=== PATIENT | female | born 1980 | race African-American/Black ===

== ENCOUNTER 2025-03-11 00:33 | Emergency (ER) | payer MEDICAID ==
[~2025-03-11] VITALS: Ht 167.6 cm; Wt 65.0 kg
[2025-03-11 00:39] VITALS: O2SAT 99
[2025-03-11 02:52] VITALS: TEMP 36.6; O2SAT 99
[2025-03-11 03:01] VITALS: BP 153/98; PULSE 85; RESP 20
[2025-03-11] MEDS: IBUPROFEN 600MG TABLET PO ONE (03:01)
[2025-03-11] MEDS ORDERED: CYCL10TA21 MT (08:34)
== END 2025-03-11 05:28 | disposition left against medical advice (07) ==
LOC: ER 00:33
DX: S40.011A Contusion of right shoulder, initial encounter (principal); X58.XXXA Exposure to other specified factors, initial encounter; Y93.89 Activity, other specified; Y92.89 Other specified places as the place of occurrence of the external cause; Y99.8 Other external cause status
CPT/HCPCS: 73030; 99283

== ENCOUNTER 2025-03-15 17:24 | Emergency (ER) | payer MEDICAID ==
[~2025-03-15] VITALS: Ht 170.2 cm; Wt 68.0 kg
[~2025-03-15 17:24] MED LIST: CYCL10TA21 MT
[2025-03-15 17:27] VITALS: O2SAT 99
[2025-03-15] MEDS ORDERED: DICYCLOMINE 10 MG/5 ML ORAL SYR PO STA (17:52)
[2025-03-15 18:00] VITALS: BP 147/93; PULSE 70; RESP 16; TEMP 36.8; O2SAT 98
[2025-03-15 18:15] LABS: BASOPHILS % 0.4 % (0.0-2.0); EOSINOPHILS % 0.2 % (0.0-5.0); HEMATOCRIT. 33.2 % (36.0-48.0); HEMOGLOBIN. 10.8 g/dL (12.0-16.0); LYMPHOCYTES % 28.9 % (20.0-50.0); MEAN PLATELET VOLUME 7.7 fl (7.4-10.4); MONOCYTES % 7.5 % (2.0-8.0); NEUTROPHILS % 63.0 % (40.0-76.0); PLATELET 128 x1000/uL (130-400); RED BLOOD CELL COUNT 3.63 mill/uL (4.2-5.4); RED CELL DISTRIBUTION WIDTH 16.6 % (11.6-14.6)
[2025-03-15 18:30] LABS: CREATININE 1.0 mg/dL (0.6-1.0)
[2025-03-15 18:31] LABS: ETHANOL BLOOD 300 mg/dL (<10); UREA NITROGEN BLOOD 11 mg/dL (9-23)
[2025-03-15 18:32] LABS: ASPARTATE AMINOTRANSFERASE 187 IU/L (<34); HCG SCREEN NEGATIVE
[2025-03-15 18:33] LABS: BILIRUBIN DIRECT 0.3 mg/dL (<=3.0); BILIRUBIN TOTAL 1.0 mg/dL (0.1-1.0); PROTEIN TOTAL 7.8 g/dL (6.0-8.3)
[2025-03-15] MEDS: MAGNESIUM/ALUMINUM HYDROXIDE/SIMETHICONE 30ML UDC PO STA (18:58)
[2025-03-15] MEDS: DICYCLOMINE HCL 10MG CAPSULE PO SCH (18:58)
[2025-03-15] MEDS: ONDANSETRON 4MG ODT PO STA (18:59)
== END 2025-03-15 19:16 | disposition home or self-care (01) ==
LOC: ER 17:24
DX: F10.129 Alcohol abuse with intoxication, unspecified (principal); I10 Essential (primary) hypertension; Z79.899 Other long term (current) drug therapy; Y90.9 Presence of alcohol in blood, level not specified
CPT/HCPCS: 80076; 80048; 80320; 84703; 83690; 85025; 36415; 99284; Q0162; G0480

== ENCOUNTER 2025-04-30 02:03 | Emergency (ER) | payer MEDICAID ==
[~2025-04-30] VITALS: Ht 172.7 cm; Wt 59.0 kg
[~2025-04-30 02:03] MED LIST changes: +ACET-2424 PO; +AMLO10TA80 PO; +ATOR20TA PO; +DICL100G58 TP; +GABA-1180 PO; +HYDR-3735 PO; +MECL-217 PO; +MULT-378 PO; +THIA100T88 PO
[2025-04-30 02:05] VITALS: BP 136/90; PULSE 80; RESP 18; O2SAT 99
[2025-04-30] MEDS: ACETAMINOPHEN 500MG TABLET PO ONE (02:34)
[2025-04-30] MEDS ORDERED: IBUP-1455 MT (04:01)
== END 2025-04-30 04:00 | disposition home or self-care (01) ==
LOC: ER 02:03
DX: S10.93XA Contusion of unspecified part of neck, initial encounter (principal); S00.83XA Contusion of other part of head, initial encounter; G44.309 Post-traumatic headache, unspecified, not intractable; M25.531 Pain in right wrist; I10 Essential (primary) hypertension; Z79.899 Other long term (current) drug therapy; F10.90 Alcohol use, unspecified, uncomplicated; F12.90 Cannabis use, unspecified, uncomplicated; Y90.9 Presence of alcohol in blood, level not specified
CPT/HCPCS: 70486; 99284

== ENCOUNTER 2025-05-30 23:42 | Inpatient (IN) | payer MEDICAID ==
[~2025-05-30] VITALS: Ht 172.7 cm; Wt 63.5 kg
[~2025-05-30 23:42] MED LIST changes: -ACET-2424 PO; -CYCL10TA21 MT; -DICL100G58 TP; -GABA-1180 PO; -HYDR-3735 PO
[2025-05-31 00:01] VITALS: O2SAT 97
[2025-05-31] MEDS: SODIUM CHLORIDE 0.9% 1,000 ML IV ONE ×2 (01:15→06:36)
[2025-05-31 01:17] LABS: HEMATOCRIT. 30.2 % (36.0-48.0); HEMOGLOBIN. 9.8 g/dL (12.0-16.0); MEAN PLATELET VOLUME 7.6 fl (7.4-10.4); PLATELET 173 x1000/uL (130-400); RED BLOOD CELL COUNT 3.17 mill/uL (4.2-5.4); RED CELL DISTRIBUTION WIDTH 15.9 % (11.6-14.6)
[2025-05-31 01:21] LABS: *AMPHETAMINES SCREEN URINE NEGATIVE (NEGATIVE); *BENZODIAZEPINES SCREEN URINE PRESUMPTIVE POSITIVE (NEGATIVE)
[2025-05-31 01:22] LABS: *BARBITURATES SCREEN URINE NEGATIVE (NEGATIVE); *COCAINE SCREEN URINE NEGATIVE (NEGATIVE); CANNABINOID URINE SCREEN NEGATIVE (NEGATIVE); ECSTASY MDMA SCREEN URINE NEGATIVE (NEGATIVE); METHADONE URINE SCREEN NEGATIVE (NEGATIVE); OPIATES URINE SCREEN NEGATIVE (NEGATIVE); PHENCYCLIDINE URINE SCREEN NEGATIVE (NEGATIVE)
[2025-05-31 01:30] LABS: HCG SCREEN NEGATIVE
[2025-05-31 01:31] LABS: CREATININE 0.9 mg/dL (0.6-1.0)
[2025-05-31 01:32] LABS: UREA NITROGEN BLOOD 10 mg/dL (9-23)
[2025-05-31 01:33] LABS: ASPARTATE AMINOTRANSFERASE 120 IU/L (<34)
[2025-05-31 01:34] LABS: BILIRUBIN DIRECT 0.1 mg/dL (<=3.0); BILIRUBIN TOTAL 0.4 mg/dL (0.1-1.0); PROTEIN TOTAL 7.4 g/dL (6.0-8.3)
[2025-05-31 01:38] LABS: LYMPHOCYTES % MANUAL 34.0 % (20.0-60.0); MONOCYTES % MANUAL 18.0 % (2.0-8.0); NEUTROPHILS % MANUAL 48.0 % (45.0-75.0); PLATELET ESTIMATE NORMAL
[2025-05-31 02:48] LABS: ETHANOL BLOOD 332 mg/dL (<10)
[2025-05-31] MEDS ORDERED: ONDANSETRON HCL 4MG/2ML INJ IV PRN (03:30)
[2025-05-31] MEDS ORDERED: ACETAMINOPHEN 325MG TABLET PO PRN ×2 (03:30)
[2025-05-31 04:00] VITALS: BP 114/76; PULSE 68; RESP 18; TEMP 36.6; O2SAT 98
[2025-05-31] MEDS: MAGNESIUM 2 G PREMIX 50 ML IV NR (04:21)
[2025-05-31] MEDS: KCL 20MEQ/100ML PREMIX 100 ML IV NR (04:21)
[2025-05-31 05:16] VITALS: BP 114/76; PULSE 72; RESP 14; TEMP 36.5848
[2025-05-31] MEDS: THIAMINE HCL 200 MG in SODIUM CHLORIDE 0.9% 98 ML IV NR (06:29)
[2025-05-31 08:00] VITALS: BP 103/74; PULSE 73; RESP 20; TEMP 36.6; O2SAT 97
== END 2025-05-31 08:50 | disposition left against medical advice (07) | DRG 52 ==
LOC: ER 23:42 → 7WST 05-31 03:12 → EDBEDREQ 05-31 03:19 → EDBEDREQTM 05-31 03:19 → ENRESERV 05-31 04:12
PROVIDERS: ADMIT Student in an Organized Health Care Education/Training Program; ATTEND Student in an Organized Health Care Education/Training Program
DX: G92.8 Other toxic encephalopathy (principal); D64.9 Anemia, unspecified; D72.821 Monocytosis (symptomatic); F10.129 Alcohol abuse with intoxication, unspecified; E83.42 Hypomagnesemia; E87.6 Hypokalemia; I10 Essential (primary) hypertension; Y90.8 Blood alcohol level of 240 mg/100 ml or more; Z53.29 Procedure and treatment not carried out because of patient's decision for other reasons
CPT/HCPCS: 36415; 80048; 80076; 80305; 80320; 83735; 84703; 85025; 99285; J3411; J3475; J3480; J7030; J7050; G0480

== ENCOUNTER 2025-06-09 15:29 | Emergency (ER) | payer MEDICAID ==
[~2025-06-09] VITALS: Ht 165.1 cm; Wt 66.0 kg
[2025-06-09 15:31] VITALS: BP 146/94; PULSE 98; RESP 20; TEMP 36.7; O2SAT 98
[2025-06-09] MEDS ORDERED: MECL-217 MT (17:40)
[2025-06-09] MEDS: MECLIZINE 25MG TABLET PO ONE (17:46)
[2025-06-10] MEDS ORDERED: DOXY100C5 MT (03:53)
== END 2025-06-09 18:21 | disposition home or self-care (01) ==
LOC: ER 15:29
DX: R42 Dizziness and giddiness (principal); F12.90 Cannabis use, unspecified, uncomplicated; I10 Essential (primary) hypertension; Z79.899 Other long term (current) drug therapy
CPT/HCPCS: 99283; 82962; J8597

== ENCOUNTER 2025-06-09 23:33 | Emergency (ER) | payer MEDICAID ==
[~2025-06-09] VITALS: Ht 172.7 cm; Wt 65.0 kg
[~2025-06-09 23:33] MED LIST changes: +MECL-217 MT
[2025-06-09 23:40] VITALS: O2SAT 98
[2025-06-10] MEDS: ONDANSETRON HCL 4MG/2ML INJ IV ONE (01:02)
[2025-06-10] MEDS: SODIUM CHLORIDE 0.9% 1,000 ML IV ONE (01:02)
[2025-06-10 01:16] LABS: BASOPHILS % 0.4 % (0.0-2.0); EOSINOPHILS % 0.4 % (0.0-5.0); HEMATOCRIT. 26.3 % (36.0-48.0); HEMOGLOBIN. 8.8 g/dL (12.0-16.0); LYMPHOCYTES % 49.7 % (20.0-50.0); MEAN PLATELET VOLUME 7.2 fl (7.4-10.4); MONOCYTES % 7.0 % (2.0-8.0); NEUTROPHILS % 42.5 % (40.0-76.0); PLATELET 133 x1000/uL (130-400); RED BLOOD CELL COUNT 2.75 mill/uL (4.2-5.4); RED CELL DISTRIBUTION WIDTH 15.5 % (11.6-14.6)
[2025-06-10 01:29] LABS: CREATININE 1.0 mg/dL (0.6-1.0); UREA NITROGEN BLOOD 16 mg/dL (9-23)
[2025-06-10 01:30] LABS: HCG SCREEN NEGATIVE; TROPONIN I HIGH SENSITIVITY 4 ng/L (3.0-34)
[2025-06-10] MEDS ORDERED: DOXY100C5 MT (03:53)
[2025-06-10 04:55] VITALS: BP 125/81; PULSE 76; RESP 15; TEMP 36.9; O2SAT 98
== END 2025-06-10 05:19 | disposition home or self-care (01) ==
LOC: ER 23:41
DX: T51.0X1A Toxic effect of ethanol, accidental (unintentional), initial encounter (principal); J18.9 Pneumonia, unspecified organism; I10 Essential (primary) hypertension; Z79.899 Other long term (current) drug therapy; Y92.89 Other specified places as the place of occurrence of the external cause
CPT/HCPCS: 99285; 80048; 80320; 84703; 85025; 84484; 36415; 71045; 93005; 96361; 96374; J2405; J7030; G0480

== ENCOUNTER 2025-06-10 05:26 | Emergency (ER) | payer MEDICAID ==
[~2025-06-10] VITALS: Ht 167.6 cm; Wt 137.0 kg
[~2025-06-10 05:26] MED LIST changes: +DOXY100C5 MT
[2025-06-10 05:31] VITALS: O2SAT 95
[2025-06-10 05:38] VITALS: BP 143/89; PULSE 70; RESP 20; TEMP 37.1; O2SAT 99
== END 2025-06-10 05:50 | disposition left against medical advice (07) ==
LOC: ER 05:26
DX: J18.9 Pneumonia, unspecified organism (principal); I10 Essential (primary) hypertension; Z53.21 Procedure and treatment not carried out due to patient leaving prior to being seen by health care provider

== ENCOUNTER 2025-06-17 22:27 | Emergency (ER) | payer MEDICAID ==
[~2025-06-17 22:27] MED LIST changes: +ACET-2424 PO; +CYCL10TA21 MT; +DICL100G58 TP; +GABA-1180 PO; +HYDR-3735 PO; +IBUP-1455 MT
[2025-06-18] MEDS ORDERED: MECL-217 MT (03:03)
== END 2025-06-17 22:35 | disposition left against medical advice (07) ==
LOC: ER 22:27
DX: F10.129 Alcohol abuse with intoxication, unspecified (principal); Z53.21 Procedure and treatment not carried out due to patient leaving prior to being seen by health care provider; Y90.9 Presence of alcohol in blood, level not specified

== ENCOUNTER 2025-06-18 00:16 | Emergency (ER) | payer MEDICAID ==
[~2025-06-18] VITALS: Ht 177.8 cm; Wt 67.0 kg
[~2025-06-18 00:16] MED LIST changes: -ACET-2424 PO; -CYCL10TA21 MT; -DICL100G58 TP; -GABA-1180 PO; -HYDR-3735 PO; -IBUP-1455 MT
[2025-06-18 01:06] VITALS: TEMP 36.9; O2SAT 98
[2025-06-18] MEDS: KETOROLAC 15MG/ML VIAL IM ONE (02:29)
[2025-06-18 02:43] LABS: BASOPHILS % 0.2 % (0.0-2.0); EOSINOPHILS % 0.1 % (0.0-5.0); HEMATOCRIT. 31.4 % (36.0-48.0); HEMOGLOBIN. 10.2 g/dL (12.0-16.0); LYMPHOCYTES % 40.0 % (20.0-50.0); MEAN PLATELET VOLUME 7.7 fl (7.4-10.4); MONOCYTES % 10.6 % (2.0-8.0); NEUTROPHILS % 49.1 % (40.0-76.0); PLATELET 168 x1000/uL (130-400); RED BLOOD CELL COUNT 3.33 mill/uL (4.2-5.4); RED CELL DISTRIBUTION WIDTH 16.2 % (11.6-14.6)
[2025-06-18 02:54] LABS: CREATININE 0.9 mg/dL (0.6-1.0); UREA NITROGEN BLOOD 17 mg/dL (9-23)
[2025-06-18 02:55] LABS: TROPONIN I HIGH SENSITIVITY < 4 ng/L (3.0-34)
[2025-06-18 02:56] LABS: ASPARTATE AMINOTRANSFERASE 128 IU/L (<34); BILIRUBIN TOTAL 0.3 mg/dL (0.1-1.0)
[2025-06-18 02:57] LABS: PROTEIN TOTAL 7.6 g/dL (6.0-8.3)
[2025-06-18] MEDS ORDERED: MECL-217 MT (03:03)
[2025-06-18] MEDS: POTASSIUM CHLORIDE 20MEQ/PACKET PO ONE (03:35)
[2025-06-18 03:45] VITALS: BP 154/95; PULSE 66; RESP 16; O2SAT 100
== END 2025-06-18 03:57 | disposition home or self-care (01) ==
LOC: ER 00:16
DX: F10.129 Alcohol abuse with intoxication, unspecified (principal); R42 Dizziness and giddiness; E87.6 Hypokalemia; D64.9 Anemia, unspecified; J45.909 Unspecified asthma, uncomplicated; I10 Essential (primary) hypertension; F12.90 Cannabis use, unspecified, uncomplicated; Z79.899 Other long term (current) drug therapy; Y90.9 Presence of alcohol in blood, level not specified
CPT/HCPCS: 99284; 80053; 81025; 85025; 84484; 36415; 93005; 96372; J1885